=== PATIENT | female | born 1950 | race Caucasian/White ===

== ENCOUNTER 2016-11-12 03:10 | Emergency (ER) | payer OTHER ==
[~2016-11-12] VITALS: Ht 162.6 cm; Wt 83.9 kg
[~2016-11-12 03:10] MED LIST: ALPRAZOLAM; AMBIEN; AMBIEN5 MG; FLEXERIL PO; HYDROCODONE-AP1 EAC6 PO; METFORMIN; PERCOCET 5-3251 EACH PO; SYNTHROID; WELCHOL 625 MG625 M1; ZOCOR
[2016-11-12 03:47] LABS: ABSOLUTE NEUTROPHILS 6.8 thou/uL (1.4-8.2); BASOPHILS 0.9 % (0.0-2.0); EOSINOPHILS 1.7 % (0.0-3.0); HEMATOCRIT 38.5 % (37.0-47.0); LYMPHOCYTES 27.6 % (24.0-44.0); MCH 29.6 pg (26.0-34.0); MCHC 33.7 g/dL (28.0-37.0); MCV 87.9 fL (80.0-100.0); MONOCYTES 8.3 % (1.0-8.0); PLATELET COUNT 263 thou/uL (150-400); POLYS 61.5 % (36.0-66.0); RBC 4.39 mil/uL (4.20-5.00); RDW 13.6 % (10.5-14.5)
[2016-11-12 03:48] LABS: MANUAL DIFF NO
[2016-11-12 04:11] LABS: POC CA IONIZED 4.9 mg/dL (4.5-5.3); POC CREATININE 0.7 mg/dL (0.6-1.3); POC HEMOGLOBIN 13.3 g/dL (12.0-15.0); POC POTASSIUM 3.9 mmol/L (3.5-5.1)
[2016-11-12] MEDS ORDERED: AUGMENTIN 875-1 EACH PO (05:20)
[2016-11-12] MEDS ORDERED: IBUPROFEN 600600 M1 PO (05:20)
[2016-11-12] MEDS ORDERED: NORCO 5-325 TA1 EACH PO (05:20)
[2016-11-12 05:34] VITALS: BP 122/80
[2016-11-12] MEDS ORDERED: PERCOCET 5-3251 EACH PO (05:35)
== END 2016-11-12 05:23 | disposition home or self-care (01) ==
LOC: ER 03:10
PROVIDERS: Emergency Medicine
DX: J03.90 Acute tonsillitis, unspecified (principal); F41.9 Anxiety disorder, unspecified; M19.90 Unspecified osteoarthritis, unspecified site; F17.210 Nicotine dependence, cigarettes, uncomplicated